=== PATIENT | male | born 1950 | race Caucasian/White ===

== ENCOUNTER 2017-03-21 09:33 | Emergency (ER) | payer MEDICARE ==
[~2017-03-21] VITALS: Ht 180.3 cm; Wt 157.7 kg
[2017-03-21 09:35] VITALS: BP 132/94
[2017-03-21] MEDS ORDERED: KETOROLAC 30 MG/1 ML ONE (10:23)
[2017-03-21] MEDS ORDERED: METHOCARBAMOL 750 MG TABLET ONE (10:23)
[2017-03-21] MEDS ORDERED: KETOROLAC 30 MG/1 ML IM ONE ×2 (10:30)
[2017-03-21] MEDS ORDERED: METHOCARBAMOL 750 MG TABLET PO ONE (10:30)
== END 2017-03-21 11:45 | disposition home or self-care (01) ==
LOC: ED 11:15
DX: M16.12 Unilateral primary osteoarthritis, left hip (principal); M54.5 Low back pain; E11.9 Type 2 diabetes mellitus without complications; I10 Essential (primary) hypertension; Z86.718 Personal history of other venous thrombosis and embolism
CPT/HCPCS: 72110; 99284